=== PATIENT | female | born 1990 | race Hispanic/Latino ===

== ENCOUNTER 2016-12-22 14:10 | Outpatient (CLI) | payer SELFPAY ==
[2016-12-22] MEDS ORDERED: LACTATED RINGERS 500 ML IV ONE (16:12)
[2016-12-22] MEDS ORDERED: ZOFRAN IV ONE (16:43)
[2016-12-22 16:55] VITALS: BP 137/81
== END 2016-12-22 17:23 | disposition home or self-care (01) ==
LOC: TRG 14:10
PROVIDERS: ATTEND Obstetrics & Gynecology
DX: O99.333 Smoking (tobacco) complicating pregnancy, third trimester (principal); O47.03 False labor before 37 completed weeks of gestation, third trimester; Z3A.29 29 weeks gestation of pregnancy
CPT/HCPCS: 96360; J2405; J7120; 59025